=== PATIENT | male | born 2000 | race Caucasian/White ===

== ENCOUNTER 2019-07-04 00:01 | Emergency (ER) | payer MEDICAID ==
[~2019-07-04] VITALS: Ht 180.3 cm; Wt 97.5 kg
[2019-07-04 00:06] VITALS: Ht 180.3 cm; Wt 97.5 kg
[2019-07-04 00:17] VITALS: BP 147/99
== END 2019-07-04 00:17 | disposition home or self-care (01) ==
LOC: ED 00:01
DX: J40 Bronchitis, not specified as acute or chronic (principal)